=== PATIENT | male | born 2000 | race Caucasian/White ===

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

== ENCOUNTER 2024-04-02 11:01 | Emergency (ER) | payer MEDICAID, SELFPAY ==
[2024-04-02] VITALS (97 sets, daily range): BP systolic 77–135; BP diastolic 56–100; PULSE 109–153; RESP 10–32; TEMP 37.1; O2SAT 87–100
--- NOTE | 2024-04-02 11:00 | RT.EKG_ITS ---
APPROVED REPORT Exam: Resting ECG Reason for Exam: Tachycardia Patient Location: E HR:125 bpm ECG Measurements Heart Rate 125 AXIS NM 100 P 51 QRSd 82 QRS 138 QT 306 T 54 QTc 442 Conclusion Sinus tachycardia...rate> 99 Probable left atrial enlargement...P >50mS, <-0.10mV V1 Right ventricular hypertrophy...prominent R or R' w/ RAD or LILIA Borderline ST elevation, anterior leads...ST >0.15mV in V1-V4
--- NOTE | 2024-04-02 11:28 | ED.GENADUL_ITS ---
Discharge Plan Discharge Details Chief Complaint: GenMedical Primary Care Provider: None,None ED Provider: Tc De La Cruz Home Meds and New Rx's Prescriptions: No Action fluticasone propionate [Flonase Allergy Relief] 50 mcg/actuation spray,suspension 1 spray NS DAILY Qty: 9.9 Patient Comments: use daily prn for allergy polyethylene glycol 3350 [ClearLax] 17 gram powder in packet 17 gm PO DAILY Qty: 100 2RF HPI General Mode of arrival: ambulatory . Date/Time Provider Initiated Documentation: 04/02/24 11:04 . Limitations to Documentation: no limitations . Information obtained by: patient . HPI Narrative: 23-year-old male with history of Duchenne muscular dystrophy, cardiomyopathy with reduced EF, nonambulatory/bedbound, here today with fatigue, generalized weakness, shortness of breath, some intermittent confusion over the past 4 to 5 days. Related Data Home Medications ?Medication ?Instructions ?Recorded ?Confirmed fluticasone propionate 50 1 spray NS DAILY #9.9 mL 12/10/18 04/02/24 mcg/actuation nasal spray,suspension (Flonase Allergy Relief) polyethylene glycol 3350 17 gram 17 gm PO DAILY #100 ea 12/10/18 04/02/24 oral powder packet (ClearLax) Previous Rx's ?Medication ?Instructions ?Recorded polyethylene glycol 3350 17 gram 17 gm PO DAILY #100 ea 12/10/18 oral powder packet (ClearLax) Allergies Allergy/AdvReac Type Severity Reaction Status Date / Time No Known Allergies Allergy Unverified 04/02/24 11:08 General Stated Complaint: GenMedical ABELINO: 2 Review of Systems All systems reviewed & are unremarkable except as noted in HPI and below Constitutional Constitutional: Reports as per HPI and Denies fever(s) Cardiovascular Cardiovascular: Denies chest pain Respiratory Respiratory: Reports as per HPI Exam Const General: no acute distress HENMT Head: normocephalic and atraumatic Mouth: mucous membranes dry Eyes Conjunctivae: normal conjunctivae Sclera: normal sclerae Neck Neck: supple Resp Auscultation: clear to auscultation bilaterally, no rales, no rhonchi and no wheezes Cardio Rate: tachycardic Rhythm: regular rhythm GI Palpation: soft, not firm, no guarding, no masses, not rigid and nontender Skin General skin exam: no rashes or lesions noted Neuro General: patient alert, patient awake and patient oriented x3 Other: Generalized weakness Extrem General: no edema Other: musclular atrophy severe Psych Appearance: grossly normal Mental Status: mental status grossly normal Course Vital Signs Vital signs: Vital Signs Temperature 37.1 C 04/02/24 11:03 Pulse 133 H 04/02/24 11:03 Respiratory Rate 20 04/02/24 11:03 Blood Pressure 135/100 H 04/02/24 11:03 Pulse Oximetry 87 L 04/02/24 11:03 Temperature 37.1 C 04/02/24 11:13 Temperature Source Oral 04/02/24 11:13 Pulse 140 H 04/02/24 11:13 Pulse 141 H 04/02/24 11:10 Respiratory Rate 20 04/02/24 11:13 Respiratory Effort Normal, Non-Labored 04/02/24 11:09 Blood Pressure 135/100 H 04/02/24 11:13 Blood Pressure Position Supine 04/02/24 11:13 Pulse Oximetry 99 04/02/24 11:13 Oxygen Delivery Method Nasal Cannula 04/02/24 11:13 Oxygen Flow Rate 2 04/02/24 11:13 Pain Level 0 04/02/24 11:13 Procedures FB Removal Ear Location: ear canal (R) Foreign Body Suspected: organic matter TM intact pre-procedure: yes Foreign Body Removed: yes Foreign Body Removal Technique: instrumentation Tympanic Membrane Intact: Yes Patient Tolerated Procedure: well Complications: none Medical Decision Making 1130??23-year-old male with history of Duchenne muscular dystrophy, cardiomyopathy with reduced EF, nonambulatory/bedbound, here today with fatigue, generalized weakness, shortness of breath, some intermittent confusion over the past 4 to 5 days. On arrival patient was noted to be hypoxic saturating 87% on room air. Nasal cannula oxygen was immediately applied at 2 L and oxygen saturation improved to 98%. Patient notes improvement in symptoms on oxygen. Patient is tachycardic and normotensive. EKG was reviewed and interpreted by me: Please report, sinus tachycardia 125 bpm, right axis deviation, RVH, borderline ST elevation in anterior leads. These findings are significantly changed from prior EKG 08/05/2019. Given shortness of breath, new hypoxia, EKG findings, in the setting of prolonged immobility, I am concerned about the potential for acute pulmonary embolism. Plan to obtain CT of the chest. Consider infectious etiology including COVID and pneumonia. Consider worsening cardiomyopathy. Consider acute progression of muscular dystrophy affecting pulmonary function. -- Patient appears hypovolemic. Will give 500mL IVF bolus. --Labs reviewed: VBG concerning for hypercapnia with pCO2 of 87. Initial troponin I 729 (upper limit of normal is 50). Second troponin 703. 1349 --CT of the chest was interpreted by radiology: 1. No evidence of pulmonary embolism, thoracic aortic dissection or aneurysm. 2. Small infiltrate in the left lingula. Suspect respiratory insufficiency with demand ischemia. I will contact [facility] transfer center request transfer. Given infiltrate, I will initiate treatment with ceftriaxone and azithromycin. 1407 -- Second EKG was reviewed and interpreted by me: Please report, sinus tachycardia 122 bpm. Right ventricular hypertrophy noted. Continues to have borderline ST elevation noted anterior leads. Also now with prolonged QT interval of 493. Patient reassessed remains tachycardic and normotensive. 1537 --I was just notified by [facility] that they do not have capacity to accept the patient in transfer and are refusing transfer request. Will contact [facility]. 1611 -- Patient remains tachycardic. Lactate nl. Will check TSH and repeat VBG. 1618 -- I spoke with [facility] cardiology, Dr. Ferreira, discussed ED presentation and course. He feels not primary cardiac and requests discussion with medicine service. 1705 --I spoke with Dr. Becerra, [facility] hospitalist, discussed ED presentation course, she will accept the patient in transfer. Awaiting bed availability. We did discuss continued IV fluids and she agreed with another infusion of 250 mL and then reassess. Repeat VBG demonstrates increased PC02 96, HCO3 50. pH nl at 7.32. Plan to trend. Medical Records Medical records reviewed: Yes I reviewed the patient's medical records. Medical records narrative: Echocardiogram from 2019 notes LVEF 30 to 35% with global hypokinesis Lab Data Lab results reviewed: Yes I reviewed the patient's lab results. Labs: 04/02/24 12:50 Blood Blood Culture - Pending 04/02/24 11:33 Blood Blood Culture - Pending Laboratory Tests Range/Units 04/02/24 04/02/24 04/02/24 11:33 11:50 13:00 WBC (4.4-10.8) 10^3/uL 6.16 RBC (4.36-5.78) 10^6/uL 5.20 Hgb (13.5-17.5) g/dL 16.6 Hct (40.0-50.0) % 51.8 H MCV (80-95) fL 100 H MCH (27.0-33.0) pg 31.9 MCHC (32.0-36.0) % 32.0 RDW (11.8-14.1) % 12.5 Plt Count (130-400) 10^3/uL 222 MPV (8.0-11.0) fL 10.2 Immature Gran % % 0.2 Neutrophils % % 68.2 Lymphocytes % % 24.5 Monocytes % % 6.3 Eosinophils % % 0.3 Basophils % % 0.5 Nucleated RBC % (0.0-0.3) % 0.0 Absolute Neutrophils (1.2-6.7) 10^3/uL 4.20 Absolute Lymphocytes (1.2-3.4) 10^3/uL 1.51 Absolute Monocytes (0.1-0.8) 10^3/uL 0.39 Absolute Eosinophils (0.0-0.7) 10^3/uL 0.02 Absolute Basophils (0.0-0.2) 10^3/uL 0.03 VBG pH (7.31-7.41) 7.35 VBG pCO2 (41-51) mmHg 87 H* VBG pO2 mmHg 65 VBG HCO3 (23-28) mmol/L 48 H VBG Total CO2 (24-29) mmol/L 42 H VBG O2 Saturation % 91 VBG Base Excess (-2-3) mmol/L 23 H VBG Lactate (0.6-1.4) mmol/L 0.8 Sodium (136-145) mmol/L 148 H Potassium (3.5-5.1) mmol/L 3.8 Chloride (98-107) mmol/L 97 L Carbon Dioxide (21.0-32.0) mmol/L > 45.0 H Anion Gap (3-11) mmol/L 5.49558 BUN (7-18) mg/dL 10 Creatinine (0.70-1.30) mg/dL 0.1 L Est GFR (CKD-EPI 2020) (mL/min/1.73m2) 241.96 Glucose (74-106) mg/dL 96 Calcium (8.5-10.1) mg/dL 9.4 Magnesium (1.8-2.4) mg/dL 2.2 Total Bilirubin (0.2-1.0) mg/dL 0.53 AST (15-37) U/L 16 ALT (16-63) U/L 28 Alkaline Phosphatase (46-116) U/L 65 Troponin I (<or=76) ng/L 729 H* 703 H* NT-Pro-B Natriuret Pep (<300) pg/mL 352 H Total Protein (6.4-8.2) g/dL 7.9 Albumin (3.4-5.0) g/dL 4.3 COVID-19 Source Nasopharynx SARS-CoV-2 (PCR) (Negative) Negative Influenza Type A (PCR) (Negative) Negative Influenza Type B (PCR) (Negative) Negative RSV (PCR) (Negative) Negative Quality:SDOH Health Related Social Needs: No Data to Display [facility] All Active Problems BMI,pediatric >= 95% (Acute 01/20/12) Constipation (Acute) Muscular dystrophy (Acute 11/19/11) Duchenne variant-rec annual cardiac evaluation Well adolescent visit (Acute 11/22/16) Medical History Duchenne muscular dystrophy diagnosed age 10 Surgical History Scoliosis deformity of spine 05/25/19 [facility] Family History Mother No problems noted. Father No problems noted. Sister Age: 13 No problems noted. Sister Age: 23 No problems noted. Brother No problems noted. Social History Smoking/Tobacco Use Status: Never Smoking risk assessment performed?: Yes Alcohol Intake: never Drug use: Never Substance use type: does not use Do you feel safe at home: Yes Do you feel safe in your relationship?: Yes
[2024-04-02 11:48] LABS: Lactate 0.8 mmol/L (0.6-1.4)
[2024-04-02 11:49] LABS: Abs Immature Grans 0.01 10^3/uL (0.0-0.06); Absolute Basophil Count 0.03 10^3/uL (0.0-0.2); Absolute Eosinophil Count 0.02 10^3/uL (0.0-0.7); Absolute Lymphocyte Count 1.51 10^3/uL (1.2-3.4); Absolute Monocyte Count 0.39 10^3/uL (0.1-0.8); Basophils % 0.5 %; Eosinophils % 0.3 %; HCT 51.8 % (40.0-50.0); HGB 16.6 g/dL (13.5-17.5); Immature Grans % 0.2 %; Lymphocytes % 24.5 %; MCH 31.9 pg (27.0-33.0); MCV 100 fL (80-95); MPV 10.2 fL (8.0-11.0); Monocytes % 6.3 %; Neutrophils % 68.2 %; Platelet Count 222 10^3/uL (130-400); RDW 12.5 % (11.8-14.1); RDW-SD 46.3 fL; WBC 6.16 10^3/uL (4.4-10.8)
[2024-04-02 11:50] LABS: BE (Venous) 23 mmol/L (-2-3); HCO3 (Venous) 48 mmol/L (23-28); O2 Sat (Venous) 91 %; TCO2 (Venous) 42 mmol/L (24-29); pH (Venous) 7.35 (7.31-7.41); pO2 (Venous) 65 mmHg
[2024-04-02 11:56] LABS: pCO2 (Venous) 87 mmHg (41-51)
--- NOTE | 2024-04-02 12:15 | DI.CT_ITS ---
Exam(s) CT CHEST PE CTA EXAM: CT CHEST PE CTA CLINICAL HISTORY: sob, hypoxia, ekg changes. TECHNIQUE: Imaging Protocol: Axial CT angiography was performed with multi-slice acquisition and mu lti-planar and/or 3D reconstructions. Computer aided detection (CAD) was utilized. CONTRAST MATERIAL: Intravenous: Omnipaque 350 contrast volume:50 mL COMPARISON: CR XR CHEST 2V PA LATERAL from 08/05/2019 FINDINGS: There is artifact from the patient's spinal rods. Tracheobronchial tree: Patent where visualized. No bronchiectasis. Pulmonary parenchyma: There is a small infiltrate in the left lingula. The lungs are otherwise clear . No architectural distortion. Pulmonary Arteries: No evidence of filling defect to suggest pulmonary emboli. Mediastinum and Teodora: No dominant adenopathy or fluid collection. The esophagus is unremarkable. Visualized thyroid gland: Unremarkable. Pleura: No effusion or pneumothorax. Heart: The heart is not dilated. No coronary artery calcifications are seen. No pericardial effusion. Aorta: Thoracic aorta non-dilated. No evidence of dissection. Upper abdomen: Within the limits of the examination the upper abdomen images are grossly unremarkabl e. Significant artifact is present. Soft tissues: Unremarkable. Bones: Within normal limits for the patient's age.The patient has posterior spinal rods throughout th e thoracic spine. IMPRESSION: 1. No evidence of pulmonary embolism, thoracic aortic dissection or aneurysm. 2. Small infiltrate in the left lingula. RADIATION DOSE DELIVERED: 57.9mGy.cm Total DLP DATA REPOSITORY: All CT scans at this facility are submitted to the National Radiology Data Registry (NRDR) Dose Index Registry (DIR) with the [employer] (ACR). RADIATION OPTIMIZATION: All CT scans at this facility use at least one of these dose optimization te chniques: automated exposure control; mA and/or kV adjustment per patient size (includes targeted exa ms where dose is matched to clinical indication); or iterative reconstruction.
[2024-04-02 12:16] LABS: ALT 28 U/L (16-63); AST 16 U/L (15-37); Albumin 4.3 g/dL (3.4-5.0); Alkaline Phosphatase 65 U/L (46-116); BUN 10 mg/dL (7-18); Bilirubin, Total 0.53 mg/dL (0.2-1.0); Calcium 9.4 mg/dL (8.5-10.1); Chloride 97 mmol/L (98-107); Glucose 96 mg/dL (74-106); Magnesium 2.2 mg/dL (1.8-2.4); NT-proBNP 352 pg/mL (<300); Potassium 3.8 mmol/L (3.5-5.1); Sodium 148 mmol/L (136-145); Total Protein 7.9 g/dL (6.4-8.2)
[2024-04-02 12:17] LABS: Anion Gap 5.99999 mmol/L (3-11); CO2 > 45.0 mmol/L (21.0-32.0); CREATININE 0.1 mg/dL (0.70-1.30); Estimated GFR 241.96 (mL/min/1.73m2)
[2024-04-02 12:29] LABS: COVID-19 PCR Negative (Negative); Influenza A PCR Negative (Negative); Influenza B PCR Negative (Negative); RSV PCR Negative (Negative)
[2024-04-02 12:30] LABS: Source Nasopharynx
[2024-04-02] MEDS: Normal Saline - Diluent 50 ML VIAL IJ (12:31)
[2024-04-02] MEDS: Omnipaque 350 MG/ML 100 ML BTL 50 ML IJ (13:18)
[2024-04-02 13:26] LABS: Troponin I 703 ng/L (<or=76)
[2024-04-02] MEDS: Normal Saline 500 ML 1000 ML IV (13:31)
--- NOTE | 2024-04-02 13:45 | RT.EKG_ITS ---
APPROVED REPORT Exam: Resting ECG Reason for Exam: Repeat Patient Location: E HR:122 bpm ECG Measurements Heart Rate 122 AXIS IN 106 P 38 QRSd 86 QRS 117 QT 346 T 48 QTc 493 Conclusion Sinus tachycardia...rate> 99 Probable left atrial enlargement...P >50mS, <-0.10mV V1 Right ventricular hypertrophy...prominent R or R' w/ RAD or LILIA Borderline ST elevation, anterior leads...ST >0.15mV in V1-V4 Prolonged QT interval...QTc >488mS
[2024-04-02] MEDS: cefTRIAXone 2 GM/50 ML BAG IVPB (14:35)
[2024-04-02 14:36] LABS: Lactate 0.8 mmol/L (0.6-1.4)
[2024-04-02 14:49] LABS: Troponin I 729 ng/L (<or=76)
[2024-04-02 15:03] LABS: Troponin I 661 ng/L (<or=76)
[2024-04-02] MEDS: AZITHROMYCIN 500 MG in DEXTROSE 5%-WATER 250 ML 250 MG IVPB (15:05)
[2024-04-02 16:54] LABS: BE (Venous) 23 mmol/L (-2-3); HCO3 (Venous) 50 mmol/L (23-28); O2 Sat (Venous) 92 %; TCO2 (Venous) 45 mmol/L (24-29); pH (Venous) 7.32 (7.31-7.41); pO2 (Venous) 66 mmHg
[2024-04-02 16:58] LABS: pCO2 (Venous) 96 mmHg (41-51)
[2024-04-02 17:20] LABS: TSH (W/Ref FT4) 1.16 uIU/mL (0.36-3.74)
[2024-04-02] MEDS: Normal Saline 250 ML IV (17:32)
--- NOTE | 2024-04-02 18:23 | W.EDPROG ---
Date of service: 04/02/24 Time of Service: 00:11 Medical Decision Making Care assumed from off going provider Dr. De La Cruz. Patient has is a 23-year-old gentleman with Duchenne muscular dystrophy. He reported at home and it seems to be in a fairly overall good state of health until this recent illness for the last couple of weeks. Patient was hypoxic and started on supplemental oxygen. He has been afebrile. Final disposition was pending transfer to outside facility. Prior workup was reviewed. No leukocytosis or anemia. There was initial concern for volume depletion by prior provider and IV fluid resuscitation has been initiated. He has significant CO2 retention. His troponin was elevated but flat. BNP mildly elevated. Viral testing was negative. A chest CT had been obtained and there is no evidence of dissection or pulmonary embolism. There is a very small infiltrate noted and IV antibiotics have been started with Rocephin and azithromycin. When I took over the patient, he was noted to have a repeat VBG with a CO2 of 96 which was worse than prior. He seemed to have an abnormal breathing pattern and I feel that this is likely chronic respiratory failure secondary to his muscular dystrophy. He did start on BiPAP. The patient had persistent tachycardia unclear if this is due to under resuscitation or another cardiac etiology. He was also persistently hypotensive. Levophed was started. I discussed with the fruit sprayer at [facility] Dr. Winters. He did review the prior echocardiogram of this patient and noted that he has a fairly significant cardiomyopathy. He has no additional recommendations for the resuscitation at this time and does feel that this is likely some acute on fairly chronic respiratory failure. He is excepted the patient for emergent transfer to the ICU. He is in critical condition and fairly unstable but parents understand the necessity of the transfer. Quality:SDOH Health Related Social Needs: No Data to Display Critical Care Time Critical Care Time Critical Care Time: Yes Total Critical Care Time: 35 Attestation: CRITICAL CARE Upon my evaluation, this patient had a high probability of imminent or life-threatening deterioration due to respiratory failure, hypotension which required my direct attention, intervention, and personal management. I have personally provided 35 minutes of critical care time exclusive of time spent on separately billable procedures. Time includes review of laboratory data, radiology results, discussion with consultants, and monitoring for potential decompensation. Interventions were performed as documented above Sign Out Sign Out Data: Sign Out Comment: 23-year-old male with Duchenne muscular dystrophy, here with generalized fatigue and weakness over the past few days, hypoxic on arrival, improved with nasal cannula oxygen. Workup consistent with respiratory failure and likely demand cardiac ischemia as evidenced by significantly elevated troponin and EKG findings. Patient also with small left lung infiltrate. He has been given azithromycin and ceftriaxone. Patient persistently tachycardic here. He has received initial 500 mL crystalloid bolus. Additional saline bolus of 250 mL ordered. TSH pending at signout. Patient has been accepted by Dr. Becerra at [facility] as an urgent transfer. Awaiting bed placement. RT awaiting assessing for bipap. Last updated by Tc De La Cruz MD at 04/02/24 17:20 Discharge Plan Disposition Patient Disposition: Transfer-Acute Inpatient Care Specific Acute Inpt Facility: [facility] Condition: Critical Discharge Details Chief Complaint: GenMedical Clinical Impression: Respiratory failure, Muscular dystrophy, Acute hypotension Primary Care Provider: None,None ED Provider: Marlen John Home Meds and New Rx's Prescriptions: No Action fluticasone propionate [Flonase Allergy Relief] 50 mcg/actuation spray,suspension 1 spray NS DAILY Qty: 9.9 Patient Comments: use daily prn for allergy polyethylene glycol 3350 [ClearLax] 17 gram powder in packet 17 gm PO DAILY Qty: 100 2RF Discharge Data Discharge Date/Time-TO BE ENTERED AT DEPARTURE: 04/02/24 19:24
[2024-04-02] MEDS: Norepinephrine in D5W 8 MG/250 ML BAG 9.375 MG IV (18:30)
== END 2024-04-02 19:24 | disposition short-term general hospital (02) ==
PROVIDERS: Student in an Organized Health Care Education/Training Program; Emergency Provider Emergency Medicine
DX: G71.01 Duchenne or Becker muscular dystrophy (principal); I42.9 Cardiomyopathy, unspecified; J96.00 Acute respiratory failure, unspecified whether with hypoxia or hypercapnia; R94.31 Abnormal electrocardiogram [ECG] [EKG]
CPT/HCPCS: 00123; 36415; 71275; 80053; 82805; 87040; 87637; 93005; 96365; 96367; 99285; 81003; 83605; 83735; 83880; 84443; 84484; 85025; 93010; J0456; J0696; J3490